=== PATIENT | male | born 1995 | race Two or more races ===

== ENCOUNTER 2017-10-26 12:24 | Emergency (ER) | payer OTHER ==
--- NOTE | 2017-10-26 13:02 | EDPHY ---
H & P Stated Complaint: L foot injury fell ~ 8 feet 2 days ago landed on L foot--no other inj Time Seen by Provider: 10/26/17 13:01 HPI/ROS: HPI: This is a 22-year-old male who presents with Chief Complaint: L foot injury fell ~ 8 feet 2 days ago landed on L foot--no other inj Location: Left foot Quality: Injury Duration: 2 days ago Signs and Symptoms: No bleeding, no radiation, no numbness, no weakness, no tingling, no incontinence, no decreased range of motion, + swelling, + pain, no fever Timing: Acute Severity: Moderate Context: Patient reports that he was drinking alcohol and on top of the roof when he decided to perform a cartwheel off of the roof and onto the ground. He reports that he landed directly on his left foot. He reports that he felt minimal pain initially. Denies LOC/head injury/neck pain/dizziness/nausea/ vomiting/amnesia. He was ambulatory the rest tonight without any difficulties. He woke up yesterday with his left foot being swollen. He reports this is swelling has remained constant. He has pain with weight-bearing. Denies any decreased range of motion/skin color changes/paresthesias. Patient does not have a primary care provider. Has not applied ice or taking any over-the- counter pain medications. Modifying Factors: None Comment: ROS: see HPI Constitutional: No fever, no chills, no weight loss Eyes: No blurred vision Respiratory: No shortness of breath, no cough Cardiovascular: No chest pain Gastrointestinal: No nausea, no vomiting no diarrhea Genitourinary: No dysuria Extremities: No myalgias Neurologic: No weakness, no numbness Skin: No rashes Hematologic: No bruising, no bleeding MEDICAL/SURGICAL/SOCIAL HISTORY: Medical history: Generally healthy. Does not take any regular medications. Surgical history: Denies Social history: [employer] student. Nonsmoker. CONSTITUTIONAL: Extremely polite and cooperative young adult male, awake and alert, no obvious distress HEENT: Atraumatic and normocephalic. NECK: supple, no midline tenderness, flexion 45 degrees, extension 45 degrees, right and left lateral flexion 45 degrees. No meningismus. Cardiovascular: Normal S1/S2, regular rate, regular rhythm, without murmur rub or gallop. PULMONARY/CHEST: Symmetrical and nontender. no crepitus. Clear to auscultation bilaterally. Good air movement. No accessory muscle usage. ABDOMEN: Soft, nondistended, nontender, no ecchymosis. PELVIC: no pain with rocking; bilateral hips flexion 125 degrees, extension 30 degrees, with no pain internal rotation and no pain external rotation. BACK: No midline tenderness, no paraspinous spasm, deep tendon reflexes 2/2, no pain with straight leg raise, No foot drop. Achilles reflexes are equal bilaterally. Able to walk on heels and toes without difficulty. EXTREMITIES: 2/2 pulses, strength 5/5, left foot shows mild swelling; no erythema/ecchymosis. Generalized tenderness over the midfoot portion. Left Ankle: Plantar flexion to 50, dorsiflexion to 20. Foot inversion to 35 degree. No tenderness/swelling Anterior talofibular ligament. No tenderness/ swelling Calcaneofibular ligament, no tenderness/swelling posterior talofibular ligament, no tenderness/swelling posterior inferior tibiofibular ligament. Achilles tendon intact. DIP/PIP/MCP flexion/extension intact with good light touch sensation. no deformities, no clubbing, no cyanosis or edema. NEUROLOGICAL: no focal neuro deficits. GCS 15. Light touch sensation intact. SKIN: Warm and dry, no erythema. no rash. Good capillary refill. Source: Patient Exam Limitations: No limitations - Medical/Surgical History Hx Asthma: No Hx Chronic Respiratory Disease: No Hx Diabetes: No Hx Cardiac Disease: No Hx Renal Disease: No Hx Cirrhosis: No Hx Alcoholism: No Hx HIV/AIDS: No Hx Splenectomy or Spleen Trauma: No Other PMH: denies - Social History Smoking Status: Never smoked Constitutional: Initial Vital Signs Temperature (C) 37.0 C 10/26/17 12:29 Heart Rate 89 10/26/17 12:29 Respiratory Rate 18 10/26/17 12:29 Blood Pressure 132/80 H 10/26/17 12:29 O2 Sat (%) 97 10/26/17 12:29 O2 Delivery Mode Room Air Allergies/Adverse Reactions: No Known Allergies Allergy (Unverified 10/26/17 12:28) Home Medications: Medication Instructions Recorded NK [No Known Home Meds] 10/26/17 Medical Decision Making - Diagnostics Imaging Results: Imaging Impressions Foot X-Ray 06/03/18 12:32 Impression: Dorsal midfoot soft tissue swelling, with no acute osseous abnormality identified. Procedures: Procedure: Splint placement. A left walking boot was applied by the Emergency Room instrumentation and controls technician. After application of the splint I returned and re-examined the patient. The splint was adequately immobilizing the joint and distal to the splint the patient's circulation and sensation was intact. ED Course/Re-evaluation: Ft x-ray my read shows possibility of a stress/hairline fracture in the mid foot and associated soft tissue swelling. Radiology read shows no fracture. Placed in walking boot, crutches, nonweightbearing status initially Podiatry follow-up No signs of neurovascular compromise/tenting of skin/compartment syndrome/ extremities and joints examined above and below area of concern and are neurovascularly intact. This patient was seen under the supervision of my secondary supervising physician. I evaluated care for this patient independently. Discussed this patient with Dr. Cuevas who did not see the patient. Differential Diagnosis: Differential diagnosis includes but is not limited to tibia fracture, fibula fracture, metatarsal fracture, Lis Franc fracture. Departure - Departure Disposition: Home, Routine, Self-Care Clinical Impression: Injury of left foot Qualifiers: Encounter type: initial encounter Qualified Code(s): S99.922A - Unspecified injury of left foot, initial encounter Condition: Good Instructions: Foot Contusion (ED), Suspected Fracture (ED) Additional Instructions: Wear the walking boot while out of bed until pain free. Use crutches to aid ambulation. Start with toe-touch weight-bearing status and advance slowly as tolerated for pain tolerance. Take Tylenol 650 mg every 4 hours and/or Ibuprofen 600 mg every 8 hours with food as needed for pain. Apply ice for 30 minutes at a time; 2-3 times per day for the next 1-2 days. Follow up with Podiatry in 7-10 days if symptoms persist at which time they will evaluate and recommend with you if conservative management versus surgery is indicated. The x-rays obtained in the emergency department today demonstrate no evidence of an obvious fracture. Sometimes fractures are not obvious on the initial set of x-rays performed in the ED. For this reason, you should have repeat x-rays performed in 7-10 days if you are having any pain exclude the possibility of an occult fracture. Referrals: Nan Mart DPM [Doctor of Podiatric Medicine] - Follow Up Only If Needed
[2017-10-26 13:43] VITALS: BP 127/85
== END 2017-10-26 13:43 | disposition home or self-care (01) ==
DX: S99.922A Unspecified injury of left foot, initial encounter (principal); W17.89XA Other fall from one level to another, initial encounter; Y99.8 Other external cause status; Y93.89 Activity, other specified
CPT/HCPCS: L4386